=== PATIENT | male | born 1970 | race Caucasian/White ===

== ENCOUNTER 2016-12-09 23:21 | Emergency (ER) | payer OTHER ==
--- NOTE | ~2016-12-09 | CR58 ---
[facility] A Service of [facility] & [facility] RADIOLOGY TEXT RESULTS PATIENT: ADAN RUDD LOCATION: CFTX : 72 UNIT #: [id number] AGE: [address]: Jenny Rodriguez APRN SEX: M ORDER DR: [id number] [facility] [address] [place], [place] [address] [id number] E MR#: [id number] Acc #: [id number] NAME: ADAN RUDD : 1970 SEX: M STUDY DATE/TIME: 12/10/2016 1:01 UNIT: TX ROOM: STUDY DESCRIPTION: CR Cervical Spine 2 or 3 Views Attending Physician: Jenny Rodriguez A.P.R.N. Ordering Physician: Jenny Rodriguez A.P.R.N. Primary Care Physician: No Primary Care Physician MEDICAL IMAGING REPORT This report is preliminary unless electronic signature is present EXAM Cervical spine series. INDICATIONS Neck pain. Right upper extremity radiculopathy since last night. PROCEDURE Four-view cervical spine. COMPARISON None. FINDINGS Cervical bodies have normal height. Alignment is preserved. Mild degenerative change with a mildly prominent posterior osteophyte C6-C7. Craniocervical junction, prevertebral soft tissues, dens are intact. IMPRESSION 1. No acute findings. 2. Mild posterior osteophyte at C6-C7. Dictated by... Bill Fowler M.D. THIS IS AN ELECTRONICALLY VERIFIED REPORT Bill Fowler M.D. at 12/15/2016 2:59 PM EED/bd TD: 12/10/2016 13:01 JOB #: [id number] MEDICAL IMAGING REPORT Page 1 of 1 COPY
--- NOTE | ~2016-12-09 | CR230 ---
[facility] A Service of [facility] & [facility] RADIOLOGY TEXT RESULTS PATIENT: ADAN RUDD LOCATION: CFTX : 71 UNIT #: [id number] AGE: [address]: Jenny Rodriguez APRN SEX: M ORDER DR: [id number] [facility] [address] [place], [place] [address] [id number] E MR#: [id number] Acc #: [id number] NAME: ADAN RUDD : 1970 SEX: M STUDY DATE/TIME: 12/10/2016 0:59 UNIT: [facility] ROOM: STUDY DESCRIPTION: CR Shoulder Min 2 View Rt Attending Physician: Jenny Rodriguez A.P.R.N. Ordering Physician: Jenny Rodriguez A.P.R.N. Primary Care Physician: No Primary Care Physician MEDICAL IMAGING REPORT This report is preliminary unless electronic signature is present EXAM Right shoulder series. INDICATIONS Right shoulder pain since last night. PROCEDURE Two views right shoulder. COMPARISON None. FINDINGS No fracture or dislocation. IMPRESSION No acute findings. Dictated by... Bill Fowler M.D. THIS IS AN ELECTRONICALLY VERIFIED REPORT Bill Fowler M.D. at 12/15/2016 2:59 PM EED/uriel TD: 12/10/2016 12:59 JOB #: [id number] MEDICAL IMAGING REPORT Page 1 of 1 COPY
== END 2016-12-10 01:49 | disposition home or self-care (01) ==
LOC: CFTX 23:21 → CED 23:21 → CFTX 23:55
DX: S46.911A Strain of unspecified muscle, fascia and tendon at shoulder and upper arm level, right arm, initial encounter (principal); F17.210 Nicotine dependence, cigarettes, uncomplicated; X58.XXXA Exposure to other specified factors, initial encounter
CPT/HCPCS: 72040; 73030; 96372; 99283; J1885

== ENCOUNTER 2016-12-11 21:20 | Emergency (ER) | payer OTHER | END 2016-12-11 23:13 | disposition home or self-care (01) | LOC: CED 21:20 → CFTX 21:20 | DX: S46.911A Strain of unspecified muscle, fascia and tendon at shoulder and upper arm level, right arm, initial encounter (principal); R03.0 Elevated blood-pressure reading, without diagnosis of hypertension; F17.210 Nicotine dependence, cigarettes, uncomplicated; Z88.5 Allergy status to narcotic agent; X50.0XXA Overexertion from strenuous movement or load, initial encounter; Y92.009 Unspecified place in unspecified non-institutional (private) residence as the place of occurrence of the external cause | CPT/HCPCS: 96372; 99283; J1885 ==

== ENCOUNTER 2017-02-07 18:55 | Emergency (ER) | payer OTHER ==
[~2017-02-07] VITALS: Ht 167.6 cm; Wt 86.2 kg
--- NOTE | ~2017-02-07 | US85 ---
[facility] A Service of [facility] & [facility] RADIOLOGY TEXT RESULTS PATIENT: ADAN RUDD LOCATION: CFTX : 71 UNIT #: [id number] AGE: [address]: FOREIGN BARNEY APRN SEX: M ORDER DR: [id number] [facility] [address] [place], [place] [address] [id number] E MR#: [id number] Acc #: [id number] NAME: ADAN RUDD : 1970 SEX: M STUDY DATE/TIME: 02/07/2017 20:56 UNIT: CFTX ROOM: STUDY DESCRIPTION: [facility] [employer] Attending Physician: Foreign Barney Aprn Ordering Physician: Foreign Barney Aprn Primary Care Physician: Primary Care Physician No MEDICAL IMAGING REPORT This report is preliminary unless electronic signature is present EXAM Venous Doppler ultrasound, left leg, 02/07/2017 HISTORY 46-year-old male in the ED complaining of 2-day history of left lower leg pain at the knee. TECHNIQUE Venous ultrasound examination of the left lower extremity was performed using grayscale, spectral Doppler and color flow Doppler imaging. FINDINGS The examination is negative. There is no evidence of left lower extremity deep venous thrombus from the groin to the lower calf. Visualized greater saphenous vein is also patent. IMPRESSION Negative examination. No evidence of left lower extremity deep venous thrombosis. Dictated by... Kunal Weber M.D. THIS IS AN ELECTRONICALLY VERIFIED REPORT Kunal Weber M.D. at 02/08/2017 9:47 AM Jose TD: 02/08/2017 07:59 JOB #: [id number] MEDICAL IMAGING REPORT Page 1 of 1 COPY
--- NOTE | ~2017-02-07 | CR142 ---
[facility] A Service of [facility] & [facility] RADIOLOGY TEXT RESULTS PATIENT: ADAN RUDD LOCATION: CFTX : 71 UNIT #: [id number] AGE: [address]: FOREIGN BARNEY APRN SEX: M ORDER DR: [id number] [facility] [address] [place], [place] [address] [id number] E MR#: [id number] Acc #: [id number] NAME: ADAN RUDD : 1970 SEX: M STUDY DATE/TIME: 02/07/2017 22:01 UNIT: [facility] ROOM: STUDY DESCRIPTION: CR Hand Min 3 Views Rt Attending Physician: Foreign Barney Aprn Ordering Physician: Foreign Barney Aprn Primary Care Physician: Primary Care Physician No MEDICAL IMAGING REPORT This report is preliminary unless electronic signature is present EXAM Right hand 3 views HISTORY Have pain x1 week. FINDINGS Three views of the right hand demonstrates no fracture, dislocation arthritic or inflammatory change. There is ulnar minus variance at the wrist. IMPRESSION No acute findings. Dictated by... George Pinto M.D. THIS IS AN ELECTRONICALLY VERIFIED REPORT George Pinto M.D. at 02/08/2017 2:34 PM Anyi TD: 02/08/2017 08:17 JOB #: [id number] MEDICAL IMAGING REPORT Page 1 of 1 COPY
== END 2017-02-07 22:30 | disposition left against medical advice (07) ==
LOC: CED 18:55 → CFTX 18:55
DX: M79.641 Pain in right hand (principal); M25.562 Pain in left knee; Z98.890 Other specified postprocedural states; Z88.8 Allergy status to other drugs, medicaments and biological substances; F17.210 Nicotine dependence, cigarettes, uncomplicated
CPT/HCPCS: 36415; 73130; 84550; 93971; 99284

== ENCOUNTER 2017-02-24 10:54 | Emergency (ER) | payer OTHER ==
[~2017-02-24] VITALS: Ht 165.1 cm; Wt 86.2 kg
== END 2017-02-24 12:30 | disposition home or self-care (01) ==
LOC: CED 10:54
DX: M25.552 Pain in left hip (principal); K21.9 Gastro-esophageal reflux disease without esophagitis; Z98.890 Other specified postprocedural states; Z88.6 Allergy status to analgesic agent
CPT/HCPCS: 99283